=== PATIENT | male | born 1995 | race Caucasian/White ===

== ENCOUNTER 2017-11-04 22:52 | Emergency (ER) | payer OTHER ==
[2017-11-04 23:28] LABS: CHLORIDE,CL 102 mmol/L (101-111); SODIUM,NA 138 mmol/L (135-145)
[2017-11-04] MEDS: Iopamidol 612 MG/ML 100 ML Bottle IVPUSH ONE (23:33)
[2017-11-04] MEDS: Sodium Chloride 0.9% 1,000 ML IV SCH (23:58)
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
[2017-11-05] MEDS: Cyclobenzaprine 10 MG Tab ONE (02:01)
[2017-11-05] MEDS: Acetaminophen/HYDROcodone 325-10 MG Tab ONE (02:01)
== END 2017-11-05 02:15 | disposition home or self-care (01) ==
LOC: DL.ED 22:52
DX: S00.83XA Contusion of other part of head, initial encounter (principal); S29.012A Strain of muscle and tendon of back wall of thorax, initial encounter; S00.31XA Abrasion of nose, initial encounter; S89.91XA Unspecified injury of right lower leg, initial encounter; R07.81 Pleurodynia; V86.52XA Driver of snowmobile injured in nontraffic accident, initial encounter
CPT/HCPCS: 36415; 70450; 71260; 72125; 72128; 72131; 73560; 74177; 80053; 80305; 81001; 85025; 96360; 96361; 99284; G0480; J7030; Q9967

== ENCOUNTER 2018-12-22 00:21 | Emergency (ER) | payer BC, OTHER ==
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
== END 2018-12-22 02:47 | disposition home or self-care (01) ==
LOC: DL.ED 00:21
DX: M79.661 Pain in right lower leg (principal); M79.662 Pain in left lower leg; W13.2XXA Fall from, out of or through roof, initial encounter
CPT/HCPCS: 72100; 72220; 73590-50; 73610-LT; 73610-RT; 80305-QW; 81001; 99283-25